=== PATIENT | female | born 1990 | race Two or more races ===

== ENCOUNTER 2017-11-21 09:18 | Emergency (ER) | payer MEDICAID ==
[~2017-11-21] VITALS: Ht 160 cm; Wt 58.8 kg
[2017-11-21 09:23] VITALS: BP 127/87
[2017-11-21] MEDS ORDERED: CITA20TA5 PO (09:54)
== END 2017-11-21 10:33 | disposition home or self-care (01) ==
LOC: ED 09:53
DX: S20.212A Contusion of left front wall of thorax, initial encounter (principal); Y04.0XXA Assault by unarmed brawl or fight, initial encounter; Y93.89 Activity, other specified; Y92.89 Other specified places as the place of occurrence of the external cause; Y99.8 Other external cause status
CPT/HCPCS: 99284

== ENCOUNTER 2018-07-02 22:48 | Emergency (ER) | payer MEDICAID ==
[~2018-07-02] VITALS: Ht 160 cm; Wt 57.0 kg
[~2018-07-02 22:48] MED LIST: CITA20TA6 PO
[2018-07-02] MEDS ORDERED: RISP1TAB3 PO (23:22)
[2018-07-03 00:57] VITALS: BP 124/75
== END 2018-07-03 00:58 ==
LOC: ED 23:17
DX: S06.0X0A Concussion without loss of consciousness, initial encounter (principal); F32.9 Major depressive disorder, single episode, unspecified; F17.200 Nicotine dependence, unspecified, uncomplicated; W18.30XA Fall on same level, unspecified, initial encounter; Y93.89 Activity, other specified; Y92.009 Unspecified place in unspecified non-institutional (private) residence as the place of occurrence of the external cause; Y99.8 Other external cause status
CPT/HCPCS: 93005; 99283

== ENCOUNTER 2018-08-02 20:46 | Emergency (ER) | payer MEDICAID ==
[~2018-08-02] VITALS: Ht 160 cm; Wt 56.7 kg
[~2018-08-02 20:46] MED LIST changes: +RISP1TAB3 PO
[2018-08-02 21:39] LABS: BASOPHILS # (AUTO) 0.02 x10^3/uL (0-0.1); BASOPHILS % (AUTO) 0 % (0-1); EOSINOPHILS % (AUTO) 0 % (1-7); LYMPHOCYTES # (AUTO) 2.95 x10^3/uL (1-3.4); LYMPHOCYTES % (AUTO) 38 % (22-44); MD NO; MEAN CORPUSCULAR HEMOGLOBIN 30.5 pg (27.0-34.8); MEAN CORPUSCULAR HGB CONC 34.1 g/dL (32.4-35.8); MEAN CORPUSCULAR VOLUME 89.4 fL (80-100); MEAN PLATELET VOLUME 8.2 fL (7.4-10.4); MONOCYTES # (AUTO) 0.46 x10^3/uL (0.2-0.8); MONOCYTES % (AUTO) 6 % (2-9); NEUTROPHILS # (AUTO) 4.31 x10^3/uL (1.8-6.8); NEUTROPHILS % (AUTO) 56 % (42-75); PLATELET COUNT 215 x10^3/uL (130-400); RED BLOOD COUNT 4.53 x10^6/uL (3.82-5.3); RED CELL DISTRIBUTION WIDTH 12.2 % (9.6-15.2)
[2018-08-02 21:49] LABS: ALBUMIN 3.9 g/dL (3.4-5.0); ANION GAP 8 mmol/L (5-15); CALCIUM 8.5 mg/dL (8.5-10.1); CHLORIDE 110 mmol/L (98-107); CREATININE 0.82 mg/dL (0.55-1.02)
[2018-08-02 22:16] VITALS: BP 96/51
== END 2018-08-02 22:18 | disposition home or self-care (01) ==
LOC: ED 21:16
DX: R20.2 Paresthesia of skin (principal); M25.512 Pain in left shoulder; F17.200 Nicotine dependence, unspecified, uncomplicated
CPT/HCPCS: 36415; 80048; 82040; 84443; 85025; 99284